=== PATIENT | female | born 1950 | race Caucasian/White ===

== ENCOUNTER 2018-10-19 10:16 | Emergency (ER) | payer MEDICARE ==
[~2018-10-19 10:16] MED LIST: Sodium Chloride Irrig Solution 250 ML BOT ONE
[2018-10-19] MEDS ORDERED: Lidocaine 1% 20 ML MDV ONE (10:53)
[2018-10-19] MEDS ORDERED: Adacel (T-DAP) 0.5 ML SYRINGE ONE (10:53)
[2018-10-19] MEDS ORDERED: Bacitracin Zinc 1 Packet ONE (11:08)
[2018-10-19] MEDS ORDERED: Cephalexin 500 MG CAP ONE (12:01)
--- NOTE | 2018-10-19 12:10 | RAD ---
LEFT FINGER 3 VIEWS: Date: 10/19/18 HISTORY: Table saw injury. COMPARISON: None. FINDINGS: Examination is limited due to overlying bandage material. There appears to be a large laceration of t he volar soft tissues of the thumb distal phalanx. No radiopaque foreign object is appreciated. No di splaced fracture is appreciated. IMPRESSION: Soft tissue laceration without acute fracture. A repeat radiograph after removal of the bandage and b leeding is controlled is recommended. POS: [facility]
== END 2018-10-19 12:15 | disposition home or self-care (01) ==
LOC: MADERS 10:16
DX: S61.012A Laceration without foreign body of left thumb without damage to nail, initial encounter (principal); E78.5 Hyperlipidemia, unspecified; I10 Essential (primary) hypertension; J44.9 Chronic obstructive pulmonary disease, unspecified; Z87.891 Personal history of nicotine dependence; Z23 Encounter for immunization; W27.0XXA Contact with workbench tool, initial encounter; Y92.009 Unspecified place in unspecified non-institutional (private) residence as the place of occurrence of the external cause
CPT/HCPCS: 11042; 90471; 90715; J2001